=== PATIENT | female | born 1990 | race Caucasian/White ===

== ENCOUNTER 2017-07-11 19:08 | Emergency (ER) | payer MEDICAID ==
[~2017-07-11] VITALS: Ht 152.4 cm; Wt 54.9 kg
[~2017-07-11 19:08] MED LIST: BUSPAR 10MG TAB10 MG PO; CIPRO 500MG TA500 MG PO; CIPROFLOXACIN500 MG PO; CLONAZEPAM 1MG T1 MG PO; FLEXERIL10 MG PO; KEFLEX 500MG.500 MG PO; MACROBID 100MG100 MG PO; MOTRIN400 MG PO; NOMEDS; PERCOCET 5/3251 EACH PO; PHENERGAN 25MG.25 M1 PO; PRENATAL PLUS1 TA1 PO; PRENATAL1 TA2 PO; PROZAC10 MG PO; PYRIDIUM 200MG200 MG PO; REMERON15 MG PO; ROBITUSSIN DM S10 ML PO; TRAZODONE HCL50 MG PO; TRAZODONE50 MG PO; ULTRAM50 MG PO; XANAX 0.5MG TA0.5 MG PO; XANAX XR0.5 MG PO; ZITHROMAX Z PA250 MG PO
--- NOTE | 2017-07-11 19:29 | Emergency Room Report ---
History of Present Illness Time Seen by 1907 Presenting Problem in Triage Pt arrived:Walked Presenting Problem:PT WAS BROUGHT IN BY PD FOR MEDICAL CLEARANCE. PT ADMITS TO SHOOTING UP HEROIN AROUND 2. 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 N Clinical Suspician of Infection? N Mental Status: 1 - Regular (Normal Baseline) Sepsis Risk:Low Sepsis Risk Have you (or family members/close friends) recently traveled outside the [place]? N If Yes, where/when: Have you had exposure to infectious disease within the past month? N TB? Other? Specify: Comment The patient has been arrested and is brought in by police for medical clearance before being taken to [facility] because she admits to injecting heroin today at 2 PM. She denies using any other drugs today. No alcohol. She says she feels fine. She has been in police custody for 30 minutes and has been acting normally. She is not on any prescription medications. ALLERGIES Coded Allergies: Penicillins (07/05/16) Home Medications Reported Medications No Known Home Medications History Medical History General CAD? No Angina: No [place]: No Hypertension? No Hyperlipidemia? No CHF? No DVT? No PE? No COPD? No Asthma? No Anemia? No GERD? No Gastric ulcers? No GI Bleed? No Hernia? No Thyroid Problems? No Hypothyroidism? No CVA? No Seizures? No Diabetes? No Renal Insuffiency? No End Stage Renal Disease? No UTI? Yes Stones? No BPH? No GB Disease: No Nephritic Syndrome? No Asplenia? No Hepatitis? Yes Sickle Cell Disease? No Arthritis? No Migraines? No Cataracts? No Glaucoma? No MRSA? No HIV? No TB? No Anxiety? No Depression? No Cancer? No Site: N More? 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 Respiratory denies cough, denies shortness of breath Cardiovascular denies chest pain Gastrointestinal denies abdominal pain, denies diarrhea, denies vomiting Genitourinary denies: dysuria. Physical Exam Vital Signs Vital Signs Date Time Temp Pulse Resp B/P Pulse O2 O2 Flow FiO2 Ox Delivery Rate 07/11 1912 98.8 115 14 148/80 100 General Appearance no apparent distress Eye Exam - bilateral eye normal exam, bilateral eye PERRL, bilateral eye EOMI Ear, Nose, Throat hearing grossly normal, normal ENT inspection Neck normal inspection, non-tender, supple, full range of motion Respiratory Status Yes: trachea midline, chest symmetrical. No: respiratory distress. Lung Sounds bilateral: normal breath sounds, lungs clear. 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 No Progress - The patient has been medically evaluated and I find no significant medical condition to prevent disposition to [facility]. The patient is medically cleared. Departure Departure Disposition DC Home or Self Care(routine) Clinical Impression Primary Impression: Heroin abuse Condition STABLE Referrals [facility] Patient Instructions DI for Drug Abuse and Drug Addiction Prescriptions Current Visit Scripts No Known Home Medications ED Critical Care Critical Care No at 1933
--- NOTE | 2017-07-11 19:29 | Emergency Room Report ---
History of Present Illness Time Seen by 1907 Presenting Problem in Triage Pt arrived:Walked Presenting Problem:PT WAS BROUGHT IN BY PD FOR MEDICAL CLEARANCE. PT ADMITS TO SHOOTING UP HEROIN AROUND 2. 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 N Clinical Suspician of Infection? N Mental Status: 1 - Regular (Normal Baseline) Sepsis Risk:Low Sepsis Risk Have you (or family members/close friends) recently traveled outside the [place]? N If Yes, where/when: Have you had exposure to infectious disease within the past month? N TB? Other? Specify: Comment The patient has been arrested and is brought in by police for medical clearance before being taken to shelter because she admits to injecting heroin today at 2 PM. She denies using any other drugs today. No alcohol. She says she feels fine. She has been in police custody for 30 minutes and has been acting normally. She is not on any prescription medications. ALLERGIES Coded Allergies: Penicillins (07/05/16) Home Medications Reported Medications No Known Home Medications History Medical History General CAD? No Angina: No [place]: No Hypertension? No Hyperlipidemia? No CHF? No DVT? No PE? No COPD? No Asthma? No Anemia? No GERD? No Gastric ulcers? No GI Bleed? No Hernia? No Thyroid Problems? No Hypothyroidism? No CVA? No Seizures? No Diabetes? No Renal Insuffiency? No End Stage Renal Disease? No UTI? Yes Stones? No BPH? No GB Disease: No Nephritic Syndrome? No Asplenia? No Hepatitis? Yes Sickle Cell Disease? No Arthritis? No Migraines? No Cataracts? No Glaucoma? No MRSA? No HIV? No TB? No Anxiety? No Depression? No Cancer? No Site: N More? 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 Respiratory denies cough, denies shortness of breath Cardiovascular denies chest pain Gastrointestinal denies abdominal pain, denies diarrhea, denies vomiting Genitourinary denies: dysuria. Physical Exam Vital Signs Vital Signs Date Time Temp Pulse Resp B/P Pulse O2 O2 Flow FiO2 Ox Delivery Rate 07/11 1912 98.8 115 14 148/80 100 General Appearance no apparent distress Eye Exam - bilateral eye normal exam, bilateral eye PERRL, bilateral eye EOMI Ear, Nose, Throat hearing grossly normal, normal ENT inspection Neck normal inspection, non-tender, supple, full range of motion Respiratory Status Yes: trachea midline, chest symmetrical. No: respiratory distress. Lung Sounds bilateral: normal breath sounds, lungs clear. 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 No Progress - The patient has been medically evaluated and I find no significant medical condition to prevent disposition to shelter. The patient is medically cleared. Departure Departure Disposition DC Home or Self Care(routine) Clinical Impression Primary Impression: Heroin abuse Condition STABLE Referrals [facility] Patient Instructions DI for Drug Abuse and Drug Addiction Prescriptions Current Visit Scripts No Known Home Medications ED Critical Care Critical Care No at 1933
[2017-07-11 19:37] VITALS: BP 148/80
== END 2017-07-11 19:37 | disposition home or self-care (01) ==
LOC: ER 19:08
DX: Z02.89 Encounter for other administrative examinations (principal); F11.10 Opioid abuse, uncomplicated; Z88.0 Allergy status to penicillin; F17.210 Nicotine dependence, cigarettes, uncomplicated